=== PATIENT | male | born 1975 | race Caucasian/White ===

== ENCOUNTER 2018-10-29 14:15 | Emergency (ER) | payer OTHER ==
[2018-10-29 14:44] VITALS: BP 144/83; PULSE 58; TEMP 98.9; BMI 27.7
[2018-10-29] MEDS ORDERED: ACETAMINOPHEN 325 MG TABLET (FP) PO ONE (15:47)
--- NOTE | 2018-10-29 15:48 | PDOC ---
History of Present Illness - General Chief Complaint: Pain, Acute Stated Complaint: RL ABD PAIN Time Seen by Provider: 10/29/18 15:42 History Source: Patient Exam Limitations: No Limitations Past History - Past Medical History Allergies/Adverse Reactions: Allergies Allergy/AdvReac Type Severity Reaction Status Date / Time No Known Allergies Allergy Verified 10/29/18 14:44 Home Medications: Ambulatory Orders NK [No Known Home Medication] 10/29/18 - Suicide/Smoking/Psychosocial Hx Smoking History: Former smoker Have you smoked in the past 12 months: No Information on smoking cessation initiated: No *Physical Exam - Vital Signs Last Vital Signs Temp Pulse Resp BP Pulse Ox 98.9 F 58 L 20 144/83 99 10/29/18 14:43 10/29/18 14:43 10/29/18 14:43 10/29/18 14:43 10/29/18 14:43 - Physical Exam General Appearance: No: Apparent Distress Respiratory/Chest: positive: Lungs Clear, Normal Breath Sounds. negative: Respiratory Distress Cardiovascular: positive: Regular Rhythm, Regular Rate, S1, S2. negative: Murmur Gastrointestinal/Abdominal: positive: Tender (RUQ), Flat, Soft. negative: Distended, Guarding, Rebound, Mass Musculoskeletal: negative: CVA Tenderness Integumentary: positive: Normal Color Neurologic: positive: Alert, Normal Mood/Affect Moderate Sedation - Procedure Monitoring Vital Signs: Procedure Monitoring Vital Signs Temperature 98.9 F 10/29/18 14:43 Pulse Rate 58 L 10/29/18 14:43 Respiratory Rate 20 10/29/18 14:43 Blood Pressure 144/83 10/29/18 14:43 O2 Sat by Pulse Oximetry (%) 99 10/29/18 14:43 ED Treatment Course - LABORATORY CBC & Chemistry Diagram: 10/29/18 16:00 10/29/18 16:00 - RADIOLOGY Radiology Studies Ordered: Category Date Time Status ABDOMEN US -LIMITED [US] Stat Ultrasound 10/29/18 15:47 Ordered Medical Decision Making - Medical Decision Making 43 y/o M with no sig pmh presents with R sided abdominal pain x 4 days with mild nausea today. Denies fever, sob, cp, vomiting, diarrhea, urinary complaints. Has not tried taking anything for pain. Denies abd surgeries Pain more along RUQ - will r/o gallstones, cholecystitis Plan: Labs, RUQ sono, Tylenol, reassess 10/29/18 15:48 RUQ sono negative Patient states is feeling better; pain improved from 01/19 to [address] Cruz - recommend CT abd/pelvis to r/o other acute pathology 10/29/18 17:09 CT A/P negative Stable for d/c 10/29/18 18:59 *DC/Admit/Observation/Transfer Diagnosis at time of Disposition: Abdominal pain Qualifiers: Abdominal location: right upper quadrant Qualified Code(s): R10.11 - Right upper quadrant pain - Discharge Dispostion Disposition: HOME Condition at time of disposition: Improved Decision to Admit order: No - Referrals Referrals: ON STAFF,NOT [Primary Care Provider] - - Patient Instructions Printed Discharge Instructions: DI for Abdominal Pain-Adult Additional Instructions: Thank you for choosing [facility]. It was a pleasure taking care of you. Your CT scan and ultrasound were normal Your labs were normal. Follow-up with your PCP in 2-3 days. Return to the Emergency Department if your symptoms worsen or persist or have other concerning symptoms. - Post Discharge Activity
[2018-10-29 16:31] LABS: BASO % 0.5 % (0-2.0); EOS % 0.2 % (0-4.5); HEMATOCRIT 45.5 % (35.4-49); LYMPH % 10.7 % (8-40); MCH 33.8 pg (25.7-33.7); MCHC 35.1 g/dl (32.0-35.9); MEAN CELL VOLUME 96.3 fl (80-96); MONO % 5.6 % (3.8-10.2); RBC 4.73 M/mm3 (4.00-5.60); RDW 13.3 % (11.9-15.9); WHITE BLOOD COUNT 11.1 K/mm3 (4.0-10.0)
[2018-10-29] MEDS ORDERED: ACETAMINOPHEN 325 MG TABLET (FP) ONE (16:35)
[2018-10-29 16:50] LABS: ALBUMIN 4.1 g/dl (3.4-5.0); ALK PHOS 61 U/L (45-117); ANION GAP 7 MMOL/L (8-16); BILIRUBIN,TOTAL 0.4 mg/dL (0.2-1); BLOOD UREA NITROGEN 10 mg/dL (7-18); CALCIUM 8.8 mg/dL (8.5-10.1); CHLORIDE 106 mmol/L (98-107); CO2 26 mmol/L (21-32); GLUCOSE,RANDOM 113 mg/dL (74-106); LIPASE 86 U/L (73-393); POTASSIUM 4.7 mmol/L (3.5-5.1); SGOT/AST 22 U/L (15-37); SGPT/ALT 30 U/L (13-61); SODIUM 140 mmol/L (136-145); TOT PROT 7.1 g/dl (6.4-8.2)
[2018-10-29 17:55] LABS: MEAN PLT VOLUME 10.1 fl (7.5-11.1); PLATELET COUNT 188 K/MM3 (134-434); PLATELET ESTIMATE ADEQUATE
== END 2018-10-29 19:45 | disposition home or self-care (01) ==
LOC: JER 14:15
DX: R10.11 Right upper quadrant pain (principal)
CPT/HCPCS: 36415; 74177-TC; 76705-TC; 80053; 83690; 85025; 99282-25